=== PATIENT | female | born 1995 | race Caucasian/White ===

== ENCOUNTER 2016-10-29 18:25 | Emergency (ER) | payer SELFPAY ==
[2016-10-29] MEDS ORDERED: ONDANSETRON 4 MG TAB.RAPDIS PO ONE (19:06)
--- NOTE | 2016-10-29 19:07 | ER Document Report ---
ED Medical Screen (RME) - General Stated Complaint: VOMITING Notes: Patient states she has had vomiting and diarrhea since last night, vomited 2 today. Patient describes the diarrhea as watery. No fever known. I have greeted and performed a rapid initial assessment of this patient. A comprehensive ED assessment and evaluation of the patient, analysis of test results and completion of the medical decision making process will be conducted by additional ED providers. TRAVEL OUTSIDE OF THE [place] IN LAST 30 DAYS: No - Related Data Allergies/Adverse Reactions: iodine [Iodine] Allergy (Verified 10/29/16 19:06) Past Medical History Psychiatric Medical History: Reports: Hx Bipolar Disorder, Hx Depression - Immunizations Immunizations up to date: Yes Hx Diphtheria, Pertussis, Tetanus Vaccination: Yes Physical Exam - Vital signs Vitals: Temp Pulse Resp BP Pulse Ox 98.2 F 84 18 122/79 99 10/29/16 19:00 10/29/16 19:00 10/29/16 19:00 10/29/16 19:00 10/29/16 19:00 - Abdominal Inspection: Normal Bowel sounds: Normal Tenderness: Tender - mild, diffuse Course - Vital Signs Vital signs: Temp Pulse Resp BP Pulse Ox 98.2 F 84 18 122/79 99 10/29/16 19:00 10/29/16 19:00 10/29/16 19:00 10/29/16 19:00 10/29/16 19:00
[2016-10-29 19:35] LABS: HEMATOCRIT 37.9 % (36.0-47.0); HGB HCT DIFFERENCE 1.1; MEAN CORPUSCULAR HEMOGLOBIN 30.1 pg (27.0-33.4); MEAN CORPUSCULAR HGB CONC 34.3 g/dL (32.0-36.0); MEAN CORPUSCULAR VOLUME 88 fl (80-97); RED BLOOD COUNT 4.32 10^6/uL (3.72-5.28); RED CELL DISTRIBUTION WIDTH 12.7 % (11.5-14.0); WHITE BLOOD COUNT 6.4 10^3/uL (4.0-10.5)
[2016-10-29 19:40] LABS: APPEARANCE,URINE SLIGHTLY-CLOUDY; BILIRUBIN,URINE NEGATIVE (NEGATIVE); GLUCOSE, URINE NEGATIVE (NEGATIVE); KETONES,URINE NEGATIVE (NEGATIVE); LEUKOCYTE ESTERASE,URINE TRACE (NEGATIVE); NITRITE,URINE NEGATIVE (NEGATIVE); PROTEIN,URINE NEGATIVE (NEGATIVE); URINE SPECIFIC GRAVITY 1.008; UROBILINOGEN,URINE NEGATIVE mg/dL (<2.0)
[2016-10-29 19:50] LABS: ALANINE AMINOTRANSFERASE 35 U/L (9-52); ALBUMIN 4.7 g/dL (3.5-5.0); ALKALINE PHOSPHATASE 72 U/L (38-126); ANION GAP 15 (5-19); ASPARTATE AMINO TRANSFERASE 30 U/L (14-36); BILIRUBIN,DIRECT 0.1 mg/dL (0.0-0.4); BILIRUBIN,TOTAL 0.5 mg/dL (0.2-1.3); BLOOD UREA NITROGEN 8 mg/dL (7-20); CALCIUM 10.2 mg/dL (8.4-10.2); CARBON DIOXIDE 26 mmol/L (22-30); CHLORIDE 104 mmol/L (98-107); CREATININE RESULT 0.72 mg/dL (0.52-1.25); GLUCOSE 100 mg/dL (75-110); LIPASE 26.6 U/L (23-300); POTASSIUM 3.6 mmol/L (3.6-5.0); SODIUM 144.6 mmol/L (137-145); TOTAL PROTEIN 8.4 g/dL (6.3-8.2)
[2016-10-29 19:57] LABS: BAND NEUTROPHILS % (MANUAL) 1 % (3-5); BASOPHILS % (MANUAL) 0 % (0-2); EOSINOPHILS % (MANUAL) 3 % (0-6); LYMPHOCYTES % (MANUAL) 20 % (13-45); TOTAL CELLS COUNTED 100
[2016-10-29 20:00] LABS: OVALOCYTES SLIGHT; POIKILOCYTOSIS SLIGHT
--- NOTE | 2016-10-29 21:37 | ER Document Report ---
ED GI/ - General TRAVEL OUTSIDE OF THE [place] IN LAST 30 DAYS: No - HPI Patient complains to provider of: Abdominal pain, Diarrhea, Vomiting Onset: Other - see HPI note Associated symptoms: Diarrhea, Nausea, Vomiting. denies: Constipation, Fever <MART MIN - Last Filed: 10/29/16 21:37> <ANDREW FRY - Last Filed: 10/29/16 22:06> - General Chief Complaint: Nausea/Vomiting/Diarrhea Stated Complaint: VOMITING Notes: Patient is a 21 year old female presenting to the emergency department for vomiting and diarrhea. Patient states that she has been sick intermittently over the past month. Patient states today is the worst day for her symptoms. Patient has been having diarrhea since last night and into today; patient states she has had diarrhea more than 20 times. Patient describes it as watery. Patient states it occurs directly after she eats anything. Patient also has vomited x3 today. Patient has had nausea intermittently over the past month that is exacerbated with standing. Patient denies any known fever. Patient complains of some abdominal cramping along with some head congestion. Patient is allergic to iodine. Patient does not have a primary care physician. (MART MIN) - Related Data Allergies/Adverse Reactions: iodine [Iodine] Allergy (Verified 10/29/16 19:06) Past Medical History - General Information source: Patient - Social History Smoking Status: Never Smoker Cigarette use (# per day): No Chew tobacco use (# tins/day): No Frequency of alcohol use: None Drug Abuse: None Family History: None Psychiatric Medical History: Reports: Hx Bipolar Disorder, Hx Depression Past Surgical History: Reports: Hx Nose Surgery - Immunizations Immunizations up to date: Yes Hx Diphtheria, Pertussis, Tetanus Vaccination: Yes <MART MIN - Last Filed: 10/29/16 21:37> Review of Systems - Review of Systems Constitutional: See HPI, Malaise. denies: Fever EENT: See HPI, Nose congestion Cardiovascular: No symptoms reported Respiratory: No symptoms reported Gastrointestinal: See HPI, Abdominal pain, Diarrhea, Nausea, Vomiting. denies: Constipation Genitourinary: No symptoms reported Female Genitourinary: No symptoms reported Musculoskeletal: No symptoms reported Skin: No symptoms reported Hematologic/Lymphatic: No symptoms reported Neurological/Psychological: No symptoms reported -: Yes All other systems reviewed and negative <MRAT MIN - Last Filed: 10/29/16 21:37> Physical Exam - Vital signs Interpretation: Normal <MART MIN - Last Filed: 10/29/16 21:37> <SHONANDREW BOOTH - Last Filed: 10/29/16 22:06> - Vital signs Vitals: Temp Pulse Resp BP Pulse Ox 98.2 F 84 18 122/79 99 10/29/16 19:00 10/29/16 19:00 10/29/16 19:00 10/29/16 19:00 10/29/16 19:00 - Notes Notes: GENERAL: Well-appearing, well-nourished and in no acute distress HEAD: Atraumatic, normocephalic EYES: Pupils equal round and reactive to light, extraocular movements intact, sclera anicteric, no conjunctival injection or discharge ENT: Nares patent, oropharynx clear without exudates, dry mucous membranes NECK: Normal range of motion, supple without lymphadenopathy LUNGS: Breath sounds clear to auscultation bilaterally and equal. No wheezes rales or rhonchi HEART: Regular rate and rhythm without murmurs ABDOMEN: Soft, minimal generalized tenderness with palpation, hyperactive bowel sounds. No guarding, no rebound. No masses appreciated. No [place] sign BACK: No CVA tenderness. EXTREMITIES: Normal range of motion, no calf tenderness, no edema NEUROLOGICAL: Cranial nerves grossly intact. Normal speech, Normal sensory and motor exams. No gross cerebellar abnormalities PSYCH: Normal mood, normal affect SKIN: Warm, Dry, normal turgor, no lesions noted ([email or web address]) Course - Laboratory Result Diagrams: 10/29/16 19:20 10/29/16 19:20 <MART MIN - Last Filed: 10/29/16 21:37> - Laboratory Result Diagrams: 10/29/16 19:20 10/29/16 19:20 <SHON,JOHN F - Last Filed: 10/29/16 22:06> - Re-evaluation Re-evalutation: 10/29/16 21:58 The patient appears clinically just mildly dehydrated. She should be able to rehydrate orally if she can tolerate by mouth fluids. We will give her a fluid challenge here. It is slightly confusing with the one month of intermittent symptoms that seem sporadic but this last 24 hours seems most consistent with a consideration for infectious etiology, possibly viral. We will treat her symptomatically at this time and have her to a primary care physician for follow -up. She does have multiple sick contacts. I will prescribe her Levsin, promethazine for symptomatic relief and have her push non-caffeinated fluids. ( ANDREW FRY) - Vital Signs Vital signs: Temp Pulse Resp BP Pulse Ox 98.2 F 84 18 122/79 99 10/29/16 19:00 10/29/16 19:00 10/29/16 19:00 10/29/16 19:00 10/29/16 19:00 - Laboratory Laboratory results interpreted by me: 10/29/16 10/29/16 10/29/16 19:20 19:20 19:20 Band Neutrophils % 1 L Monocytes % (Manual) 16 H Total Protein 8.4 H Urine Blood SMALL H Ur Leukocyte Esterase TRACE H Discharge <MART MIN - Last Filed: 10/29/16 21:37> <ANDREW FRY - Last Filed: 10/29/16 22:06> - Discharge Clinical Impression: Nausea, vomiting, and diarrhea, Abdominal pain Condition: Good Disposition: HOME, SELF-CARE Instructions: Abdominal Pain ([facility]), Antinausea Medication ([facility]), Diarrhea, Nonspecific ([facility]), Vomiting ([facility]) Additional Instructions: Off work today and tomorrow. Return as symptoms improve. Prescriptions: Hyoscyamine Sulfate [Levsin 0.125 Tablet] 0.125 - 0.25 mg PO Q6HP PRN #12 tablet PRN Reason: For Abdominal Pain Promethazine HCl [Phenergan 25 mg Tablet] 1 - 2 tab PO Q6H PRN #15 tablet PRN Reason: Forms: Return to Work Scribe Attestation: 10/29/16 22:05 I personally performed the services described in the documentation, reviewed and edited the documentation which was dictated to the scribe in my presence, and it accurately records my words and actions. (ANDREW FRY) Scribe Documentation - Scribe Written by Sánchez:: Mart Min 10/29/16 21:45 acting as scribe for :: Shon <MART MIN - Last Filed: 10/29/16 21:37>
[2016-10-29 22:39] VITALS: BP 110/63
== END 2016-10-29 22:30 | disposition home or self-care (01) ==
LOC: ER 18:25
DX: R11.2 Nausea with vomiting, unspecified (principal); R19.7 Diarrhea, unspecified; R10.9 Unspecified abdominal pain
CPT/HCPCS: 99284; 36415; 84702; 83690; 85025; 80053; 81001; S0119